=== PATIENT | male | born 1990 | race African-American/Black ===

== ENCOUNTER 2017-06-03 07:02 | Emergency (ER) | payer SELFPAY ==
[2017-06-03] MEDS ORDERED: traMADol HCl 50 MG TAB ONE (07:41)
== END 2017-06-03 08:31 | disposition home or self-care (01) ==
LOC: ERS 07:02
DX: K02.9 Dental caries, unspecified (principal); F17.210 Nicotine dependence, cigarettes, uncomplicated
CPT/HCPCS: 99406